=== PATIENT | male | born 1940 | race Caucasian/White ===

== ENCOUNTER 2021-07-07 12:52 | Inpatient (IN) | payer OTHER, BC ==
[2021-07-07 14:28] LABS: BASO % 0.2 % (0-2.0); HEMATOCRIT 47.4 % (35.4-49); HEMOGLOBIN 16.4 GM/dL (11.7-16.9); LYMPH % 9.8 % (8-40); MCH 31.8 pg (25.7-33.7); MCHC 34.6 g/dl (32.0-35.9); MEAN CELL VOLUME 91.9 fl (80-96); MEAN PLT VOLUME 8.8 fl (7.5-11.1); MONO % 7.3 % (3.8-10.2); NEUT % 82.7 % (42.8-82.8); PLATELET COUNT 189 10^3/uL (134-434); RBC 5.16 M/mm3 (4.00-5.60); RDW 14.2 % (11.9-15.9); VENOUS BASE EXCESS -1.8 mmol/L (-2-2); VENOUS O2 SATURATION 68.4 % (70-80); VENOUS PCO2 35.7 mmHg (38-52); VENOUS PH 7.411 (7.310-7.410); WHITE BLOOD COUNT 5.8 K/mm3 (4.0-10.0)
[2021-07-07 14:34] LABS: INR 1.14 (0.83-1.09); PROTHROMBIN TIME (PATIENT) 13.3 SEC (9.7-13.0)
[2021-07-07 14:37] LABS: ACTIVATED PTT 28.3 SECONDS (25.2-36.5)
[2021-07-07 15:06] LABS: ALBUMIN 3.1 g/dl (3.4-5.0); BLOOD UREA NITROGEN 26.6 mg/dL (7-18); CALCIUM 8.7 mg/dL (8.5-10.1)
[2021-07-07 15:11] LABS: BILIRUBIN,TOTAL 0.9 mg/dL (0.2-1); CREATININE 1.4 mg/dL (0.55-1.3); TOT PROT 7.4 g/dl (6.4-8.2)
[2021-07-07 15:17] LABS: LACTIC ACID 2.5 mmol/L (0.4-2.0)
[2021-07-07] MEDS ORDERED: SODIUM CHLORIDE 0.9% 500 ML INFUS.BAG IV ONE ×2 (15:18→15:30)
[2021-07-07] MEDS ORDERED: DEXAMETHASONE SOD PHOSPHATE 4 MG/1 ML VIAL IVPUSH ONE (16:33)
[2021-07-07] MEDS ORDERED: DEXAMETHASONE SOD PHOSPHATE 10 MG/1 ML VIAL ONE (16:50)
[2021-07-07] MEDS ORDERED: SODIUM CHLORIDE 1,000 ML IV SCH (17:15)
[2021-07-07] MEDS ORDERED: ALBUTEROL SO4 HFA INHALER IH PRN (17:31)
[2021-07-07] MEDS ORDERED: PANTOPRAZOLE SODIUM 40 MG VIAL IVPUSH SCH (17:45)
[2021-07-07] MEDS: BUDESONIDE/FORMETEROL FUMARATE 160/4.5 mcg INHALER IH SCH (23:09)
[2021-07-07] MEDS: HEPARIN NA (PORCINE) 5,000 UNITS/ML 1ML VIAL SQ SCH (23:09)
[2021-07-07] MEDS: INSULIN SLIDING SCALE (NOVOLOG) 1 VIAL SQ SCH (23:09)
[2021-07-08 00:39] VITALS: BMI 34.2
[2021-07-08] MEDS: INSULIN SLIDING SCALE (NOVOLOG) 1 VIAL SQ SCH ×4 (06:00→21:24)
[2021-07-08] MEDS: DEXAMETHASONE SOD PHOSPHATE 4 MG/1 ML VIAL IVPUSH SCH (11:46)
[2021-07-08] MEDS: BUDESONIDE/FORMETEROL FUMARATE 160/4.5 mcg INHALER IH SCH ×2 (11:46→21:24)
[2021-07-08] MEDS: PANTOPRAZOLE 20 MG TABLET PO SCH (11:46)
[2021-07-08] MEDS: HEPARIN NA (PORCINE) 5,000 UNITS/ML 1ML VIAL SQ SCH ×2 (11:46→21:17)
[2021-07-08] MEDS ORDERED: REMDESIVIR 200 MG in SODIUM CHLORIDE 250 ML IVPB ONE (12:00)
[2021-07-08 12:44] LABS: HEMATOCRIT 45.9 % (35.4-49); HEMOGLOBIN 15.9 GM/dL (11.7-16.9); MCH 31.7 pg (25.7-33.7); MCHC 34.6 g/dl (32.0-35.9); MEAN CELL VOLUME 91.7 fl (80-96); RDW 14.2 % (11.9-15.9); WHITE BLOOD COUNT 8.9 K/mm3 (4.0-10.0)
[2021-07-08 12:45] LABS: BASO % 0.1 % (0-2.0); MEAN PLT VOLUME 8.4 fl (7.5-11.1); MONO % 6.5 % (3.8-10.2); NEUT % 86.4 % (42.8-82.8); PLATELET COUNT 178 10^3/uL (134-434)
[2021-07-08 13:18] LABS: ALBUMIN 3.1 g/dl (3.4-5.0); BLOOD UREA NITROGEN 30.5 mg/dL (7-18); CALCIUM 8.9 mg/dL (8.5-10.1)
[2021-07-08 13:20] LABS: MAGNESIUM 2.3 mg/dL (1.8-2.4)
[2021-07-08 13:21] LABS: CREATININE 1.1 mg/dL (0.55-1.3)
[2021-07-08 13:22] LABS: BILIRUBIN,TOTAL 0.5 mg/dL (0.2-1); TOT PROT 7.1 g/dl (6.4-8.2)
[2021-07-08 13:24] LABS: PHOSPHOROUS 3.2 mg/dL (2.5-4.9)
[2021-07-08 22:14] LABS: EPI CELLS 6 /uL (0-25.1); HYALINE CASTS 2 /uL (0-3.1); URINE APPEARANCE CLEAR; URINE BACTERIA 12 /uL (0-1359); URINE BILIRUBIN NEGATIVE (NEGATIVE); URINE COLOR YELLOW; URINE GLUCOSE (UA) NEGATIVE (NEGATIVE); URINE KETONE NEGATIVE (NEGATIVE); URINE LEUK ESTERASE NEGATIVE (NEGATIVE); URINE NITRITE NEGATIVE (NEGATIVE); URINE PROTEIN 3+ (NEGATIVE); URINE RBC 16 /uL (0-23.9); URINE UROBILINOGEN 0.2 mg/dL (0.2-1.0); URINE WBC 7 /uL (0-25.8)
[2021-07-09] MEDS: INSULIN SLIDING SCALE (NOVOLOG) 1 VIAL SQ SCH ×4 (06:11→20:59)
[2021-07-09 11:41] LABS: HEMATOCRIT 44.6 % (35.4-49); HEMOGLOBIN 15.2 GM/dL (11.7-16.9); MCH 31.2 pg (25.7-33.7); MEAN CELL VOLUME 91.8 fl (80-96); MEAN PLT VOLUME 8.1 fl (7.5-11.1); PLATELET COUNT 183 10^3/uL (134-434); RBC 4.86 M/mm3 (4.00-5.60); RDW 14.2 % (11.9-15.9); WHITE BLOOD COUNT 6.6 K/mm3 (4.0-10.0)
[2021-07-09 12:01] LABS: CALCIUM 9.2 mg/dL (8.5-10.1)
[2021-07-09 12:02] LABS: BLOOD UREA NITROGEN 37.5 mg/dL (7-18); MAGNESIUM 2.7 mg/dL (1.8-2.4)
[2021-07-09 12:06] LABS: BILIRUBIN,TOTAL 0.5 mg/dL (0.2-1); TOT PROT 6.9 g/dl (6.4-8.2)
[2021-07-09] MEDS: HEPARIN NA (PORCINE) 5,000 UNITS/ML 1ML VIAL SQ SCH ×2 (13:08→21:00)
[2021-07-09] MEDS: PANTOPRAZOLE 20 MG TABLET PO SCH (13:08)
[2021-07-09] MEDS: BUDESONIDE/FORMETEROL FUMARATE 160/4.5 mcg INHALER IH SCH ×2 (13:08→21:00)
[2021-07-09] MEDS: DEXAMETHASONE SOD PHOSPHATE 4 MG/1 ML VIAL IVPUSH SCH (13:08)
[2021-07-09] MEDS: SIMETHICONE 80 MG TAB.CHEW (FP) PO PRN (13:08)
[2021-07-09] MEDS: REMDESIVIR 100 MG in SODIUM CHLORIDE 250 ML IVPB SCH (13:10)
[2021-07-10] MEDS: INSULIN SLIDING SCALE (NOVOLOG) 1 VIAL SQ SCH ×5 (06:13→21:12)
[2021-07-10 10:12] LABS: HEMATOCRIT 43.6 % (35.4-49); HEMOGLOBIN 14.8 GM/dL (11.7-16.9); MCH 31.5 pg (25.7-33.7); MCHC 33.9 g/dl (32.0-35.9); MEAN CELL VOLUME 92.8 fl (80-96); MEAN PLT VOLUME 8.6 fl (7.5-11.1); PLATELET COUNT 181 10^3/uL (134-434); RDW 14.4 % (11.9-15.9); WHITE BLOOD COUNT 3.8 K/mm3 (4.0-10.0)
[2021-07-10 10:46] LABS: BLOOD UREA NITROGEN 29.1 mg/dL (7-18)
[2021-07-10 10:47] LABS: ALBUMIN 2.6 g/dl (3.4-5.0); MAGNESIUM 2.4 mg/dL (1.8-2.4)
[2021-07-10 10:49] LABS: PHOSPHOROUS 3.2 mg/dL (2.5-4.9)
[2021-07-10 10:50] LABS: CREATININE 0.9 mg/dL (0.55-1.3)
[2021-07-10 10:51] LABS: BILIRUBIN,TOTAL 0.5 mg/dL (0.2-1); TOT PROT 6.4 g/dl (6.4-8.2)
[2021-07-10] MEDS: PANTOPRAZOLE 20 MG TABLET PO SCH (12:19)
[2021-07-10] MEDS: HEPARIN NA (PORCINE) 5,000 UNITS/ML 1ML VIAL SQ SCH ×2 (12:19→21:12)
[2021-07-10] MEDS: DEXAMETHASONE SOD PHOSPHATE 4 MG/1 ML VIAL IVPUSH SCH (12:19)
[2021-07-10] MEDS: SIMETHICONE 80 MG TAB.CHEW (FP) PO PRN (12:19)
[2021-07-10] MEDS: BUDESONIDE/FORMETEROL FUMARATE 160/4.5 mcg INHALER IH SCH ×2 (12:20→21:12)
[2021-07-10] MEDS: REMDESIVIR 100 MG in SODIUM CHLORIDE 250 ML IVPB SCH (12:20)
[2021-07-11] MEDS: INSULIN SLIDING SCALE (NOVOLOG) 1 VIAL SQ SCH ×4 (06:28→21:39)
[2021-07-11] MEDS: REMDESIVIR 100 MG in SODIUM CHLORIDE 250 ML IVPB SCH (12:00)
[2021-07-11] MEDS: DEXAMETHASONE SOD PHOSPHATE 4 MG/1 ML VIAL IVPUSH SCH (12:01)
[2021-07-11] MEDS: PANTOPRAZOLE 20 MG TABLET PO SCH (12:01)
[2021-07-11] MEDS: HEPARIN NA (PORCINE) 5,000 UNITS/ML 1ML VIAL SQ SCH ×2 (12:01→21:38)
[2021-07-11] MEDS: SIMETHICONE 80 MG TAB.CHEW (FP) PO PRN (12:01)
[2021-07-11] MEDS: BUDESONIDE/FORMETEROL FUMARATE 160/4.5 mcg INHALER IH SCH ×2 (12:02→21:38)
[2021-07-11 18:13] LABS: HEMATOCRIT 43.2 % (35.4-49); HEMOGLOBIN 14.5 GM/dL (11.7-16.9); MCH 31.1 pg (25.7-33.7); MCHC 33.6 g/dl (32.0-35.9); MEAN CELL VOLUME 92.6 fl (80-96); MEAN PLT VOLUME 7.6 fl (7.5-11.1); PLATELET COUNT 203 10^3/uL (134-434); RBC 4.66 M/mm3 (4.00-5.60); RDW 14.5 % (11.9-15.9); WHITE BLOOD COUNT 5.2 K/mm3 (4.0-10.0)
[2021-07-11 18:33] LABS: CALCIUM 8.7 mg/dL (8.5-10.1)
[2021-07-11 18:35] LABS: ALBUMIN 2.8 g/dl (3.4-5.0); BLOOD UREA NITROGEN 25.6 mg/dL (7-18)
[2021-07-11 18:37] LABS: CREATININE 1.2 mg/dL (0.55-1.3)
[2021-07-11 18:38] LABS: BILIRUBIN,TOTAL 0.3 mg/dL (0.2-1); TOT PROT 6.5 g/dl (6.4-8.2)
[2021-07-12] MEDS: INSULIN SLIDING SCALE (NOVOLOG) 1 VIAL SQ SCH ×4 (06:09→21:12)
[2021-07-12 09:32] LABS: BASO % 0.1 % (0-2.0); EOS % 0.1 % (0-4.5); HEMATOCRIT 43.3 % (35.4-49); HEMOGLOBIN 14.8 GM/dL (11.7-16.9); LYMPH % 15.6 % (8-40); MCH 31.6 pg (25.7-33.7); MCHC 34.1 g/dl (32.0-35.9); MEAN CELL VOLUME 92.6 fl (80-96); NEUT % 74.2 % (42.8-82.8); PLATELET COUNT 232 10^3/uL (134-434); RBC 4.68 M/mm3 (4.00-5.60); RDW 14.2 % (11.9-15.9); WHITE BLOOD COUNT 6.4 K/mm3 (4.0-10.0)
[2021-07-12 10:15] LABS: ALBUMIN 2.7 g/dl (3.4-5.0); BLOOD UREA NITROGEN 23.7 mg/dL (7-18); MAGNESIUM 2.1 mg/dL (1.8-2.4)
[2021-07-12 10:18] LABS: PHOSPHOROUS 2.7 mg/dL (2.5-4.9)
[2021-07-12 10:19] LABS: BILIRUBIN,TOTAL 0.6 mg/dL (0.2-1); TOT PROT 6.6 g/dl (6.4-8.2)
[2021-07-12] MEDS: PANTOPRAZOLE 20 MG TABLET PO SCH (10:22)
[2021-07-12] MEDS: DEXAMETHASONE SOD PHOSPHATE 4 MG/1 ML VIAL IVPUSH SCH (10:24)
[2021-07-12] MEDS: HEPARIN NA (PORCINE) 5,000 UNITS/ML 1ML VIAL SQ SCH ×2 (10:25→21:11)
[2021-07-12] MEDS: BUDESONIDE/FORMETEROL FUMARATE 160/4.5 mcg INHALER IH SCH ×2 (10:25→21:13)
[2021-07-12] MEDS: REMDESIVIR 100 MG in SODIUM CHLORIDE 250 ML IVPB SCH (12:54)
[2021-07-13] MEDS: INSULIN SLIDING SCALE (NOVOLOG) 1 VIAL SQ SCH ×4 (06:03→22:42)
[2021-07-13] MEDS: DEXAMETHASONE SOD PHOSPHATE 4 MG/1 ML VIAL IVPUSH SCH (09:04)
[2021-07-13] MEDS: HEPARIN NA (PORCINE) 5,000 UNITS/ML 1ML VIAL SQ SCH ×2 (09:04→22:42)
[2021-07-13] MEDS: BUDESONIDE/FORMETEROL FUMARATE 160/4.5 mcg INHALER IH SCH ×2 (09:06→22:43)
[2021-07-13] MEDS: PANTOPRAZOLE 20 MG TABLET PO SCH (09:06)
[2021-07-13 11:13] LABS: HEMATOCRIT 44.4 % (35.4-49); MCH 31.1 pg (25.7-33.7); MCHC 33.8 g/dl (32.0-35.9); MEAN PLT VOLUME 7.4 fl (7.5-11.1); PLATELET COUNT 256 10^3/uL (134-434); RBC 4.83 M/mm3 (4.00-5.60); RDW 14.3 % (11.9-15.9); WHITE BLOOD COUNT 8.6 K/mm3 (4.0-10.0)
[2021-07-13 11:43] LABS: CALCIUM 9.1 mg/dL (8.5-10.1)
[2021-07-13 11:45] LABS: ALBUMIN 2.8 g/dl (3.4-5.0); BLOOD UREA NITROGEN 21.7 mg/dL (7-18)
[2021-07-13 11:47] LABS: CREATININE 0.9 mg/dL (0.55-1.3)
[2021-07-13 11:48] LABS: BILIRUBIN,TOTAL 0.9 mg/dL (0.2-1); TOT PROT 6.3 g/dl (6.4-8.2)
[2021-07-14] MEDS: INSULIN SLIDING SCALE (NOVOLOG) 1 VIAL SQ SCH ×4 (06:32→21:24)
[2021-07-14 08:32] LABS: HEMOGLOBIN 14.9 GM/dL (11.7-16.9); MCH 32.1 pg (25.7-33.7); MCHC 34.6 g/dl (32.0-35.9); MEAN CELL VOLUME 92.8 fl (80-96); MEAN PLT VOLUME 8.1 fl (7.5-11.1); PLATELET COUNT 277 10^3/uL (134-434); RBC 4.63 M/mm3 (4.00-5.60); RDW 14.5 % (11.9-15.9); WHITE BLOOD COUNT 7.7 K/mm3 (4.0-10.0)
[2021-07-14 08:55] LABS: BLOOD UREA NITROGEN 23.5 mg/dL (7-18)
[2021-07-14 08:56] LABS: CALCIUM 8.7 mg/dL (8.5-10.1)
[2021-07-14 08:57] LABS: ALBUMIN 2.7 g/dl (3.4-5.0)
[2021-07-14 08:58] LABS: CREATININE 0.9 mg/dL (0.55-1.3)
[2021-07-14 09:00] LABS: BILIRUBIN,TOTAL 0.7 mg/dL (0.2-1); TOT PROT 6.2 g/dl (6.4-8.2)
[2021-07-14] MEDS: PANTOPRAZOLE 20 MG TABLET PO SCH (10:13)
[2021-07-14] MEDS: DEXAMETHASONE SOD PHOSPHATE 4 MG/1 ML VIAL IVPUSH SCH (10:13)
[2021-07-14] MEDS: HEPARIN NA (PORCINE) 5,000 UNITS/ML 1ML VIAL SQ SCH ×2 (10:14→21:24)
[2021-07-14] MEDS: BUDESONIDE/FORMETEROL FUMARATE 160/4.5 mcg INHALER IH SCH ×2 (10:14→21:24)
[2021-07-15] MEDS: INSULIN SLIDING SCALE (NOVOLOG) 1 VIAL SQ SCH ×4 (06:05→21:47)
[2021-07-15] MEDS: HEPARIN NA (PORCINE) 5,000 UNITS/ML 1ML VIAL SQ SCH ×2 (10:44→21:28)
[2021-07-15] MEDS: PANTOPRAZOLE 20 MG TABLET PO SCH (10:44)
[2021-07-15] MEDS: BUDESONIDE/FORMETEROL FUMARATE 160/4.5 mcg INHALER IH SCH ×2 (10:44→21:28)
[2021-07-15 11:15] LABS: HEMATOCRIT 43.7 % (35.4-49); HEMOGLOBIN 14.7 GM/dL (11.7-16.9); MCH 31.7 pg (25.7-33.7); MCHC 33.7 g/dl (32.0-35.9); MEAN CELL VOLUME 93.9 fl (80-96); MEAN PLT VOLUME 7.4 fl (7.5-11.1); PLATELET COUNT 308 10^3/uL (134-434); RBC 4.65 M/mm3 (4.00-5.60); RDW 14.6 % (11.9-15.9); WHITE BLOOD COUNT 7.3 K/mm3 (4.0-10.0)
[2021-07-15 11:39] LABS: ALBUMIN 2.6 g/dl (3.4-5.0); BLOOD UREA NITROGEN 22.5 mg/dL (7-18)
[2021-07-15] MEDS: DEXAMETHASONE SOD PHOSPHATE 4 MG/1 ML VIAL IVPUSH SCH (11:41)
[2021-07-15 11:43] LABS: BILIRUBIN,TOTAL 0.6 mg/dL (0.2-1)
[2021-07-16] MEDS: INSULIN SLIDING SCALE (NOVOLOG) 1 VIAL SQ SCH ×4 (06:07→22:36)
[2021-07-16] MEDS: DEXAMETHASONE SOD PHOSPHATE 4 MG/1 ML VIAL IVPUSH SCH (09:54)
[2021-07-16] MEDS: HEPARIN NA (PORCINE) 5,000 UNITS/ML 1ML VIAL SQ SCH ×2 (09:54→22:36)
[2021-07-16] MEDS: BUDESONIDE/FORMETEROL FUMARATE 160/4.5 mcg INHALER IH SCH ×2 (09:55→22:36)
[2021-07-16] MEDS: PANTOPRAZOLE 20 MG TABLET PO SCH (09:55)
[2021-07-16 11:11] LABS: HEMATOCRIT 43.1 % (35.4-49); HEMOGLOBIN 14.3 GM/dL (11.7-16.9); MCH 30.8 pg (25.7-33.7); MCHC 33.2 g/dl (32.0-35.9); MEAN CELL VOLUME 92.9 fl (80-96); MEAN PLT VOLUME 7.8 fl (7.5-11.1); PLATELET COUNT 280 10^3/uL (134-434); RBC 4.63 M/mm3 (4.00-5.60); RDW 14.2 % (11.9-15.9); WHITE BLOOD COUNT 7.3 K/mm3 (4.0-10.0)
[2021-07-16 11:37] LABS: CALCIUM 9.1 mg/dL (8.5-10.1)
[2021-07-16 11:38] LABS: ALBUMIN 2.8 g/dl (3.4-5.0); MAGNESIUM 2.3 mg/dL (1.8-2.4)
[2021-07-16 11:41] LABS: PHOSPHOROUS 3.3 mg/dL (2.5-4.9)
[2021-07-16 11:42] LABS: BILIRUBIN,TOTAL 0.6 mg/dL (0.2-1)
[2021-07-17] MEDS: INSULIN SLIDING SCALE (NOVOLOG) 1 VIAL SQ SCH ×4 (06:06→21:20)
[2021-07-17 10:42] LABS: HEMATOCRIT 43.6 % (35.4-49); HEMOGLOBIN 14.7 GM/dL (11.7-16.9); MCH 31.5 pg (25.7-33.7); MCHC 33.8 g/dl (32.0-35.9); MEAN CELL VOLUME 93.5 fl (80-96); MEAN PLT VOLUME 7.7 fl (7.5-11.1); PLATELET COUNT 287 10^3/uL (134-434); RBC 4.67 M/mm3 (4.00-5.60); RDW 14.7 % (11.9-15.9); WHITE BLOOD COUNT 6.8 K/mm3 (4.0-10.0)
[2021-07-17] MEDS: PANTOPRAZOLE 20 MG TABLET PO SCH (11:05)
[2021-07-17] MEDS: DEXAMETHASONE SOD PHOSPHATE 4 MG/1 ML VIAL IVPUSH SCH (11:05)
[2021-07-17] MEDS: HEPARIN NA (PORCINE) 5,000 UNITS/ML 1ML VIAL SQ SCH ×2 (11:06→21:19)
[2021-07-17] MEDS: BUDESONIDE/FORMETEROL FUMARATE 160/4.5 mcg INHALER IH SCH ×2 (11:06→21:19)
[2021-07-17 11:18] LABS: BLOOD UREA NITROGEN 26.7 mg/dL (7-18)
[2021-07-17 11:21] LABS: CREATININE 1.2 mg/dL (0.55-1.3)
[2021-07-18] MEDS: INSULIN SLIDING SCALE (NOVOLOG) 1 VIAL SQ SCH ×4 (06:02→21:15)
[2021-07-18] MEDS: BUDESONIDE/FORMETEROL FUMARATE 160/4.5 mcg INHALER IH SCH ×2 (09:00→21:17)
[2021-07-18] MEDS: PANTOPRAZOLE 20 MG TABLET PO SCH ×2 (09:00→10:17)
[2021-07-18] MEDS: DEXAMETHASONE SOD PHOSPHATE 4 MG/1 ML VIAL IVPUSH SCH ×2 (09:00→10:17)
[2021-07-18] MEDS: HEPARIN NA (PORCINE) 5,000 UNITS/ML 1ML VIAL SQ SCH ×3 (09:00→21:15)
[2021-07-18 10:17] LABS: HEMATOCRIT 42.2 % (35.4-49); HEMOGLOBIN 14.5 GM/dL (11.7-16.9); MCH 31.8 pg (25.7-33.7); MCHC 34.4 g/dl (32.0-35.9); MEAN CELL VOLUME 92.4 fl (80-96); MEAN PLT VOLUME 7.4 fl (7.5-11.1); PLATELET COUNT 279 10^3/uL (134-434); RBC 4.57 M/mm3 (4.00-5.60); RDW 14.7 % (11.9-15.9); WHITE BLOOD COUNT 8.7 K/mm3 (4.0-10.0)
[2021-07-18 10:46] LABS: ALBUMIN 2.7 g/dl (3.4-5.0); BLOOD UREA NITROGEN 25.5 mg/dL (7-18)
[2021-07-18 10:49] LABS: CREATININE 1.2 mg/dL (0.55-1.3)
[2021-07-19] MEDS: INSULIN SLIDING SCALE (NOVOLOG) 1 VIAL SQ SCH ×4 (06:06→21:45)
[2021-07-19 09:26] LABS: HEMATOCRIT 43.9 % (35.4-49); HEMOGLOBIN 14.9 GM/dL (11.7-16.9); MCH 31.5 pg (25.7-33.7); MCHC 33.8 g/dl (32.0-35.9); MEAN CELL VOLUME 93.2 fl (80-96); MEAN PLT VOLUME 8.8 fl (7.5-11.1); PLATELET COUNT 235 10^3/uL (134-434); RBC 4.71 M/mm3 (4.00-5.60); RDW 14.7 % (11.9-15.9); WHITE BLOOD COUNT 11.2 K/mm3 (4.0-10.0)
[2021-07-19 09:57] LABS: BLOOD UREA NITROGEN 25.9 mg/dL (7-18); CALCIUM 9.2 mg/dL (8.5-10.1)
[2021-07-19 09:58] LABS: ALBUMIN 2.9 g/dl (3.4-5.0)
[2021-07-19 10:00] LABS: CREATININE 0.9 mg/dL (0.55-1.3)
[2021-07-19 10:01] LABS: TOT PROT 6.3 g/dl (6.4-8.2)
[2021-07-19] MEDS: SIMETHICONE 80 MG TAB.CHEW (FP) PO PRN (10:40)
[2021-07-19] MEDS: PANTOPRAZOLE 20 MG TABLET PO SCH (10:40)
[2021-07-19] MEDS: DEXAMETHASONE SOD PHOSPHATE 4 MG/1 ML VIAL IVPUSH SCH (10:41)
[2021-07-19] MEDS: HEPARIN NA (PORCINE) 5,000 UNITS/ML 1ML VIAL SQ SCH ×2 (10:41→21:45)
[2021-07-19] MEDS: BUDESONIDE/FORMETEROL FUMARATE 160/4.5 mcg INHALER IH SCH ×2 (11:02→21:45)
[2021-07-19] MEDS ORDERED: INSULIN (NOVOLOG) ASPART 100 UNITS/ML 10ML VIAL ONE (16:46)
[2021-07-20] MEDS: INSULIN SLIDING SCALE (NOVOLOG) 1 VIAL SQ SCH ×4 (06:36→21:44)
[2021-07-20 08:46] LABS: HEMATOCRIT 44.7 % (35.4-49); MCH 31.9 pg (25.7-33.7); MCHC 33.6 g/dl (32.0-35.9); MEAN CELL VOLUME 94.9 fl (80-96); MEAN PLT VOLUME 9.1 fl (7.5-11.1); RBC 4.71 M/mm3 (4.00-5.60); RDW 14.7 % (11.9-15.9); WHITE BLOOD COUNT 11.6 K/mm3 (4.0-10.0)
[2021-07-20 09:07] LABS: ALBUMIN 2.8 g/dl (3.4-5.0); CREATININE 0.9 mg/dL (0.55-1.3)
[2021-07-20 09:08] LABS: CALCIUM 9.2 mg/dL (8.5-10.1); TOT PROT 6.2 g/dl (6.4-8.2)
[2021-07-20 09:09] LABS: BILIRUBIN,TOTAL 0.8 mg/dL (0.2-1)
[2021-07-20] MEDS: HEPARIN NA (PORCINE) 5,000 UNITS/ML 1ML VIAL SQ SCH ×2 (12:00→21:40)
[2021-07-20] MEDS: PANTOPRAZOLE 20 MG TABLET PO SCH (12:00)
[2021-07-20] MEDS: BUDESONIDE/FORMETEROL FUMARATE 160/4.5 mcg INHALER IH SCH ×2 (12:00→21:40)
[2021-07-21] MEDS: INSULIN SLIDING SCALE (NOVOLOG) 1 VIAL SQ SCH ×4 (06:53→21:08)
[2021-07-21] MEDS: BUDESONIDE/FORMETEROL FUMARATE 160/4.5 mcg INHALER IH SCH ×2 (10:12→21:06)
[2021-07-21] MEDS: HEPARIN NA (PORCINE) 5,000 UNITS/ML 1ML VIAL SQ SCH ×2 (10:12→21:06)
[2021-07-21] MEDS: PANTOPRAZOLE 20 MG TABLET PO SCH (10:12)
[2021-07-21] MEDS ORDERED: INSULIN (NOVOLOG) ASPART 100 UNITS/ML 10ML VIAL ONE (17:42)
[2021-07-22] MEDS: INSULIN SLIDING SCALE (NOVOLOG) 1 VIAL SQ SCH ×2 (06:02→11:00)
[2021-07-22] MEDS ORDERED: PT OWN MED DRAWER 7, Y5N ONE (10:24)
[2021-07-22] MEDS: PANTOPRAZOLE 20 MG TABLET PO SCH (10:26)
[2021-07-22] MEDS: HEPARIN NA (PORCINE) 5,000 UNITS/ML 1ML VIAL SQ SCH (10:26)
[2021-07-22] MEDS: BUDESONIDE/FORMETEROL FUMARATE 160/4.5 mcg INHALER IH SCH (10:30)
[2021-07-22 11:06] VITALS: BP 116/91; PULSE 80; TEMP 97.2
== END 2021-07-22 12:21 | DRG 177 ==
LOC: JER 12:52 → JERBED 14:18 → J5S 21:38 → J8W 07-19 12:36
PROVIDERS: ADMIT Internal Medicine; ATTEND Internal Medicine
PROC: XW033E5 Introduction of Remdesivir Anti-infective into Peripheral Vein, Percutaneous Approach, New Technology Group 5 (ICD-10-PCS; principal; 2021-07-07)
DX: U07.1 COVID-19 (principal); J12.82 Pneumonia due to coronavirus disease 2019; J96.01 Acute respiratory failure with hypoxia; E87.2 Acidosis; E87.1 Hypo-osmolality and hyponatremia; N17.9 Acute kidney failure, unspecified; I10 Essential (primary) hypertension; E78.5 Hyperlipidemia, unspecified; K57.90 Diverticulosis of intestine, part unspecified, without perforation or abscess without bleeding; E66.9 Obesity, unspecified; Z68.34 Body mass index [BMI] 34.0-34.9, adult; E86.0 Dehydration
CPT/HCPCS: 36415; 71045-TC-FY; 71275-TC; 80048; 80053; 81003; 82436; 82550; 82553; 82728; 82803; 82962; 83036; 83605; 83615; 83735; 83880; 83930; 83935; 84100; 84133; 84300; 84484; 85025; 85027; 85379; 85610; 85730; 86140; 86769; 87040; 87086; 87186; 87804; 87807; 87899; 93005; 93010; 94761; 97116-GP; 97162-GP; 99285-25; C9399; C9803; J1644; Q9967; U0003; U0005